=== PATIENT | female | born 1995 | race American Indian/Alaskan Native ===

== ENCOUNTER 2017-10-07 16:48 | Emergency (ER) | payer OTHER ==
[2017-10-07 17:01] VITALS: RESP 18; TEMP 97.5
--- NOTE | 2017-10-07 17:26 | ED PDOC ---
Arrival/HPI - General Chief Complaint: Female Genitourinary Time Seen by Provider: 10/07/17 17:02 Historian: Patient - History of Present Illness Narrative History of Present Illness (Text): 10/07/17 17:29 A 22 year old female, whose past medical history includes left pelvic surgery ( about 12 years ago), presents to the emergency department complaining of left pelvic pain. Patient reports pain radiates to left side of back. Reports she has an appointment with her OBGYN towards the end of the month. Patient denies any dysuria, right sided pelvic pain or any other complaints at this time. Symptom Onset: Sudden Symptom Course: Unchanged Activities at Onset: Rest Context: Home Past Medical History - Provider Review Nursing Documentation Reviewed: Yes - Tetanus Immunization Tetanus Immunization: Unknown - Cardiac Hx Cardiac Disorders: No - Pulmonary Hx Respiratory Disorders: No - Neurological Hx Neurological Disorder: No - HEENT Hx HEENT Disorder: No - Renal Hx Renal Disorder: No - Endocrine/Metabolic Hx Endocrine Disorders: No - Hematological/Oncological Hx Blood Disorders: No - Integumentary Hx Dermatological Disorder: No - Musculoskeletal/Rheumatological Hx Musculoskeletal Disorders: No - Gastrointestinal Hx Gastrointestinal Disorders: No - Genitourinary/Gynecological Hx Genitourinary Disorders: No - Psychiatric Hx Psychophysiologic Disorder: No Hx Substance Use: No - Surgical History Hx Orthopedic Surgery: Yes (left hip) - Anesthesia Hx Anesthesia: No Hx Anesthesia Reactions: No Hx Malignant Hyperthermia: No Family/Social History - Physician Review Nursing Documentation Reviewed: Yes Family/Social History: No Known Family HX Smoking Status: Never Smoked Hx Alcohol Use: Yes Frequency of alcohol use: Socially Hx Substance Use: No Allergies/Home Meds Allergies/Adverse Reactions: Allergies No Known Allergies Allergy (Verified 10/07/17 16:52) Home Medications: Home Meds Medication Instructions Recorded Confirmed No Known Home Med 10/07/17 10/07/17 Review of Systems - Physician Review All systems were reviewed & negative as marked: Yes - Review of Systems Gastrointestinal: Other (left pelvic pain) Genitourinary Female: absent: Dysuria Musculoskeletal: Back Pain (left sided). absent: Other (right pelvic pain) Physical Exam Vital Signs Reviewed: Yes Vital Signs Temp Pulse Resp BP Pulse Ox 10/07/17 16:53 97.5 F L 63 18 113/70 99 Temperature: Afebrile Blood Pressure: Normal Pulse: Regular Respiratory Rate: Normal Appearance: Positive for: Well-Appearing, Non-Toxic, Comfortable Pain Distress: None Mental Status: Positive for: Alert and Oriented X 3 - Systems Exam Head: Present: Atraumatic, Normocephalic Pupils: Present: PERRL Extroacular Muscles: Present: EOMI Conjunctiva: Present: Normal Mouth: Present: Moist Mucous Membranes Neck: Present: Normal Range of Motion Respiratory/Chest: Present: Clear to Auscultation, Good Air Exchange. No: Respiratory Distress, Accessory Muscle Use Cardiovascular: Present: Regular Rate and Rhythm, Normal S1, S2. No: Murmurs Abdomen: Present: Tenderness (mild left adnexal tenderness), Normal Bowel Sounds. No: Distention, Peritoneal Signs Genitourinary/Pelvic Exam: Present: Vaginal Discharge (minimal white; feed preparation operator Scribe Belqes present). No: Cervical Motion Tendernes Back: Present: Normal Inspection Upper Extremity: Present: Normal Inspection. No: Cyanosis, Edema Lower Extremity: Present: Normal Inspection. No: Edema Neurological: Present: GCS=15, CN II-XII Intact, Speech Normal Skin: Present: Warm, Dry, Normal Color. No: Rashes Psychiatric: Present: Alert, Oriented x 3, Normal Insight, Normal Concentration Medical Decision Making ED Course and Treatment: 10/07/17 17:25 Impression: A 22 year old female with left pelvic pain. Plan: -- US transvaginal -- labs -- Urinalysis -- Tylenol -- Reassess and disposition Prior Visits: Notes and results from previous visits were reviewed. Patient was last seen in the emergency department on 07/13/15 for evaluation of left lower quadrant abdominal pain. Progress Notes: 10/07/17 18:30 US transvaginal Creator : Duyen Blake MD IMPRESSION: No evidence of acute pathology in the uterus and adnexa. Prominent follicles are seen bilaterally. Blood flow appreciated at both ovaries. 10/07/17 18:35 pt reassesed watching tv in [place]. abd soft no ttp. no flank ttp. urine neg for infection blood, uti, stone lesslikley. advise outpt f/u an return precautions - Lab Interpretations Lab Results: Lab Results 10/07/17 17:10: Urine Color Yellow, Urine Appearance Clear, Urine pH 7.0, Ur Specific [place] 1.025, Urine Protein Negative, Urine Glucose (UA) Negative, Urine Ketones Negative, Urine Blood Negative, Urine Nitrate Negative, Urine Bilirubin Negative, Urine Urobilinogen 0.2, Ur Leukocyte Esterase Negative, Urine HCG, Qual Negative I have reviewed the lab results: Yes - RAD Interpretation Radiology Orders: 10/07/17 17:21 TRANSVAGINAL [US] Stat - Medication Orders Current Medication Orders: Discontinued Medications Acetaminophen (Tylenol 325mg Tab) 650 mg PO STAT STA Stop: 10/07/17 17:22 Last Admin: 10/07/17 18:24 Dose: 650 mg MAR Pain/Vitals Document 10/07/17 18:24 OCS (Rec: 10/07/17 18:24 OCS [id number]) Pain Reassessment Is This A Pain ReAssessment? Yes Sleep Is patient sleeping during reassessment? No Presence of Pain Presence of Pain Yes Pain Scale Used Pain Scale Used Numeric Location Left, Right or Bilateral Left Pain Location Body Site Pelvic Description Intermittent Intensity 7 Scale Used Numeric Aggravating Factors ADL's - Scribe Statement The provider has reviewed the documentation as recorded by the Radha Magallon Provider Scribe Attestation: All medical record entries made by the Scribe were at my direction and personally dictated by me. I have reviewed the chart and agree that the record accurately reflects my personal performance of the history, physical exam, medical decision making, and the department course for this patient. I have also personally directed, reviewed, and agree with the discharge instructions and disposition. Disposition/Present on Arrival - Present on Arrival Any Indicators Present on Arrival: No History of DVT/PE: No History of Uncontrolled Diabetes: No Urinary Catheter: No History of Decub. Ulcer: No History Surgical Site Infection Following: None - Disposition Have Diagnosis and Disposition been Completed?: Yes Diagnosis: Pelvic pain Disposition: HOME/ ROUTINE Disposition Time: 18:36 Patient Problems: Current Active Problems Problem Status Onset Pelvic pain Acute Condition: STABLE Discharge Instructions (ExitCare): Pelvic Pain (ED) Additional Instructions: follow up with obgyn. return to er with worsening symptoms or concerns. Referrals: Rodrigo Herrera, [Primary Care Provider] - Follow up with primary Brooke Vega MD [Medical Doctor] - Follow up with primary Forms: [employer] (Korean)
[2017-10-07 17:41] LABS: URINE BILIRUBIN NEGATIVE (NEGATIVE); URINE BLOOD NEGATIVE (NEGATIVE); URINE GLUCOSE (UA) NEGATIVE (NEGATIVE); URINE LEUKOCYTE ESTERASE NEGATIVE Leu/uL (NEGATIVE); URINE NITRATE NEGATIVE (NEGATIVE); URINE PROTEIN NEGATIVE mg/dL (<30 mg/dL); URINE UROBILINOGEN 0.2 E.U./dL (<1 E.U./dL)
[2017-10-07 17:44] LABS: HCG,QUALITATIVE URINE NEGATIVE (NEGATIVE); URINE APPEARANCE CLEAR (CLEAR); URINE COLOR YELLOW (YELLOW)
--- NOTE | 2017-10-07 18:28 | US ---
HISTORY: left sided pain COMPARISON: Comparison is made with the previous study dated 07/13/2015 TECHNIQUE: Transvaginal ultrasound examination of the pelvis was obtained. FINDINGS: UTERUS: Measures 5.5 x 3.2 x 3.5 cm. Normal in size and appearance. No fibroid or other mass lesion seen. ENDOMETRIUM: Measures 4.7 mm in diameter. Unremarkable. CERVIX: No cervical abnormality identified. RIGHT OVARY: Measures 4.1 x 2.1 x 3.2 cm. No solid mass. Normal flow. Prominent follicles are seen. LEFT OVARY: Measures 3 x 1.9 x 3 cm. No solid mass. Normal flow. Prominent follicles are seen. FREE FLUID: No significant free fluid noted. OTHER FINDINGS: None. IMPRESSION: No evidence of acute pathology in the uterus and adnexa. Prominent follicles are seen bilaterally. Blood flow appreciated at both ovaries.
[2017-10-07 19:02] VITALS: BP 106/70; PULSE 65; O2SAT 100
== END 2017-10-07 19:02 | disposition home or self-care (01) ==
LOC: ED 16:48
DX: R10.2 Pelvic and perineal pain (principal)

== ENCOUNTER 2018-08-18 12:52 | Emergency (ER) | payer OTHER, MEDICAID ==
[2018-08-18 13:31] VITALS: O2SAT 99
[2018-08-18 14:18] LABS: URINE APPEARANCE SLIGHT-CLOUDY (CLEAR); URINE BILIRUBIN SMALL (NEGATIVE); URINE BLOOD SMALL (NEGATIVE); URINE COLOR DARK YELLOW (YELLOW); URINE GLUCOSE (UA) NEGATIVE (NEGATIVE); URINE LEUKOCYTE ESTERASE LARGE Leu/uL (NEGATIVE); URINE PROTEIN 30 mg/dL (<30 mg/dL)
[2018-08-18 14:27] LABS: URINE BACTERIA SMALL (NEG); URINE EPITHELIAL CELLS 0 - 2 /hpf (0-5); URINE WBC TNTC /hpf (0-6)
--- NOTE | 2018-08-18 14:46 | ED PDOC ---
Arrival/HPI - General Chief Complaint: Female Genitourinary Time Seen by Provider: 08/18/18 13:13 Historian: Patient - History of Present Illness Narrative History of Present Illness (Text): 08/18/18 14:47 A 23-year-old female presents today with a 2 week history of dysuria or urinary frequency and suprapubic pain. Patient denies nausea vomiting diarrhea or constipation. She denies chest pain or shortness of breath. Patient states 2 weeks ago she was having some back pain and states that resolved. Patient states she's been eating and drinking well. No other complaints. Past Medical History - Provider Review Nursing Documentation Reviewed: Yes - Travel History Have you recently traveled outside [place] w/in the past 3 mons?: No - Infectious Disease Hx of Infectious Diseases: None - Tetanus Immunization Tetanus Immunization: Unknown - Cardiac Hx Cardiac Disorders: No - Pulmonary Hx Respiratory Disorders: No - Neurological Hx Neurological Disorder: No - HEENT Hx HEENT Disorder: No - Renal Hx Renal Disorder: No - Endocrine/Metabolic Hx Endocrine Disorders: No - Hematological/Oncological Hx Blood Disorders: No - Integumentary Hx Dermatological Disorder: No - Musculoskeletal/Rheumatological Hx Musculoskeletal Disorders: No - Gastrointestinal Hx Gastrointestinal Disorders: No - Genitourinary/Gynecological Hx Genitourinary Disorders: No - Psychiatric Hx Psychophysiologic Disorder: No Hx Substance Use: No - Surgical History Hx Orthopedic Surgery: Yes (left hip) - Anesthesia Hx Anesthesia: Yes Hx Anesthesia Reactions: No Hx Malignant Hyperthermia: No Family/Social History - Physician Review Nursing Documentation Reviewed: Yes Family/Social History: Unknown Family HX Smoking Status: Never Smoked Hx Alcohol Use: Yes Hx Substance Use: No Allergies/Home Meds Allergies/Adverse Reactions: Allergies No Known Allergies Allergy (Verified 08/18/18 13:31) Review of Systems - Review of Systems Constitutional: absent: Fatigue, Fevers Respiratory: absent: SOB, Cough Cardiovascular: absent: Chest Pain, Palpitations Gastrointestinal: Abdominal Pain. absent: Constipation, Diarrhea, Nausea, Vomiting Genitourinary Female: Dysuria, Frequency. absent: Hematuria, Urine Output Changes, Vaginal Bleeding, Vaginal Discharge Musculoskeletal: Back Pain (resolved). absent: Arthralgias, Neck Pain Skin: absent: Rash, Pruritis Neurological: absent: Headache, Dizziness Psychiatric: absent: Anxiety, Depression Physical Exam Vital Signs Reviewed: Yes Vital Signs Temp Pulse Resp BP Pulse Ox 08/18/18 13:27 98.3 F 61 19 123/53 L 99 Temperature: Afebrile Blood Pressure: Normal Pulse: Regular Respiratory Rate: Normal Appearance: Positive for: Well-Appearing, Non-Toxic, Comfortable Pain Distress: None Mental Status: Positive for: Alert and Oriented X 3 - Systems Exam Head: Present: Atraumatic Mouth: Present: Moist Mucous Membranes Neck: Present: Normal Range of Motion Respiratory/Chest: Present: Clear to Auscultation, Good Air Exchange. No: Respiratory Distress, Accessory Muscle Use Cardiovascular: Present: Regular Rate and Rhythm, Normal S1, S2. No: Murmurs Abdomen: Present: Normal Bowel Sounds. No: Tenderness, Distention, Peritoneal Signs, Rebound, Guarding Back: Present: Normal Inspection. No: CVA Tenderness, Midline Tenderness, Paraspinal Tenderness Upper Extremity: Present: Normal ROM Lower Extremity: Present: Normal ROM Neurological: Present: GCS=15 Skin: Present: Warm, Dry, Normal Color. No: Rashes Psychiatric: Present: Alert, Oriented x 3 Medical Decision Making ED Course and Treatment: 08/18/18 15:16 Patient is nontoxic well-appearing in no distress with stable vital signs keflex po Urinalysis: + wbcs, + leukocytes Urine culture: pending Patient is nontoxic well-appearing no distress. stable vital signs. abdomen is soft nontender nondistended. Patient resting comfortably in the emergency room. I've discussed all results in depth with the patient advised follow up with the primary care physician within the next 2 days. advised immediate return if symptoms worsen,persist or if new symptoms develop. Impression: Urinary tract infection Motrin every 6 hours as needed for pain Keflex; 1 tablet twice daily x 7 days Pyridium one tablet twice daily x3 days Followup with primary care physician within the next 2 days Follow up with the urologist for the next 2 days Return if symptoms worsen persist or if new symptoms develop; high fevers, abdominal pain, vomiting or if any other concerning symptoms develop. - Lab Interpretations Lab Results: Lab Results 08/18/18 14:09: Urine Color Dark yellow, Urine Appearance Slight-cloudy, Urine pH 6.0, Ur Specific [place] 1.020, Urine Protein 30 H, Urine Glucose (UA) Negative, Urine Ketones 15 H, Urine Blood Small H, Urine Nitrate Negative, Urine Bilirubin Small H, Urine Urobilinogen 1.0 H, Ur Leukocyte Esterase Large H, Urine RBC 2 - 5, Urine WBC Tntc, Ur Epithelial Cells 0 - 2, Urine Bacteria Small - Medication Orders Current Medication Orders: Discontinued Medications Cephalexin Monohydrate (Keflex) 500 mg PO STAT STA; Protocol Stop: 08/18/18 14:37 Disposition/Present on Arrival - Present on Arrival Any Indicators Present on Arrival: No History of DVT/PE: No History of Uncontrolled Diabetes: No Urinary Catheter: No History of Decub. Ulcer: No History Surgical Site Infection Following: None - Disposition Have Diagnosis and Disposition been Completed?: Yes Diagnosis: Urinary tract infection Disposition: HOME/ ROUTINE Disposition Time: 14:37 Patient Plan: Discharge Condition: GOOD Discharge Instructions (ExitCare): Urinary Tract Infection, Adult (DC) Additional Instructions: Motrin every 6 hours as needed for pain Keflex; 1 tablet twice daily x 7 days Pyridium one tablet twice daily x3 days Followup with primary care physician within the next 2 days Follow up with the urologist for the next 2 days Return if symptoms worsen persist or if new symptoms develop; high fevers, abdominal pain, vomiting or if any other concerning symptoms develop. Prescriptions: Cephalexin [Keflex] 500 mg PO BID #14 capsule Ibuprofen [Motrin Tab] 400 mg PO Q6H PRN #20 tab PRN Reason: Pain, Mild (1-3) Phenazopyridine [Phenazopyridine HCl] 200 mg PO BID #6 tab Referrals: Alexus Pate MD [Medical Doctor] - Follow up with primary [facility] [Outside] - Follow up with primary Yakelin Hampton MD [Staff Provider] - Follow up with primary Forms: [employer] (Greek), WORK NOTE
[2018-08-18 15:01] VITALS: BP 128/74; PULSE 76; RESP 18; TEMP 98.1
== END 2018-08-18 14:40 | disposition home or self-care (01) ==
LOC: ED 12:52
DX: N39.0 Urinary tract infection, site not specified (principal)